=== PATIENT | female | born 1935 | race Caucasian/White ===

== ENCOUNTER → 2017-05-13 | Outpatient (CLI) | payer MEDICARE, BC ==
[~2017-05-13] MED LIST: AMOXICILLIN500 M1 PO; ASPIRIN EC81 M1 PO; BIAXIN PO; CALCIUM + D 6001 TA1 PO; CALCIUM 600 + D1 TA1 PO; CALCIUM CARBON600 M1 PO; CIPRO PO; CRANBERRY PILLS PO; CRANBERRY PO; CRANBERRY400 MG PO; HYDROCODONE-APA1 T57 PO; MELATONIN3 M4 PO; MULTI VITAMIN1 EACH PO; NEXIUM20 MG PO; PROTONIX PO; WOMEN'S DAILY1 EACH PO; ZOCOR20 MG PO; ZOFRAN8 MG PO; ZOLOFT PO
--- NOTE | ~2017-05-13 | MY11 ---
[facility] A Service of [facility] RADIOLOGY TEXT RESULTS PATIENT: FRANCISCO JAVIER OZUNA LOCATION: [facility] : 39 UNIT #: [id number] AGE: [address]: Hillary Duffy MD SEX: F ORDER DR: [id number] [place] [id number] O MR#: [id number] Acc #: [id number] NAME: FRANCISCO JAVIER OZUNA : 1935 SEX: F STUDY DATE/TIME: 05/13/2017 11:51 UNIT: [facility] ROOM: STUDY DESCRIPTION: MY Mammogram Screening Dig González Attending Physician: Hillary Duffy M.D. Referring Physician: Hillary Duffy M.D. Ordering Physician: Hillary Duffy M.D. Primary Care Physician: Hillary Duffy M.D. MEDICAL IMAGING REPORT This report is preliminary unless electronic signature is present. EXAM Digital screening mammogram 05/13/2017 HISTORY 81-year-old woman no risk elevation. Annual screen. COMPARISON Mammograms date to 05/29/2007 with most recent 05/10/2016 FINDINGS Digital imaging of each breast was completed utilizing a two-view examination of each breast in craniocaudal and mediolateral-oblique projections. Review and interpretation of digital mammograms include a second review in conjunction with FDA-approved CAD device. There is a normal parenchymal presentation bilaterally consistent with the patient's age. There are no breast masses imaged and no parenchymal asymmetry is visualized. There are no suspicious microcalcifications and I see no focal architectural disturbance. IMPRESSION Negative screening digital mammogram. One-year followup recommended. Patients over the age of 40 are entered into a reminder system with target due date for the next mammogram. A result letter will also be sent to the patient. BIRADS: 1 Negative Dictated by... Omar Llanos M.D. [facility] A Service of [facility] RADIOLOGY TEXT RESULTS PATIENT: FRANCISCO JAVIER OZUNA LOCATION: [facility] : 39 UNIT #: [id number] AGE: [address]: Hillary Duffy MD SEX: F ORDER DR: THIS IS AN ELECTRONICALLY VERIFIED REPORT Omar Llanos M.D. at 05/14/2017 8:03 AM KENRICK/sarha TD: 05/13/2017 16:53 JOB #: [id number] MEDICAL IMAGING REPORT Page 1 of 1
== END | disposition home or self-care (01) ==
LOC: SMAM 11:11
DX: Z12.31 Encounter for screening mammogram for malignant neoplasm of breast (principal)
CPT/HCPCS: G0202